=== PATIENT | female | born 1955 | race African-American/Black ===

== ENCOUNTER 2017-09-12 12:06 | Inpatient (IN) | payer OTHER ==
[2017-09-12 14:19] VITALS: BMI 32.8
--- NOTE | 2017-09-12 15:25 | HP ---
COWS - Scale Resting Pulse: 1= MO 81-100 Sweatin=Flushed/Facial Moisture Restless Observation: 3= Extraneous Movement Pupil Size: 2= Moderately Dilated Bone or Joint Aches: 2= Severe Diffuse Aches Runny Nose/ Eye Tearin= Runny Nose/Eyes GI Upset > 30mins: 2= Nausea/Diarrhea Tremor Observation: 2= Slight Tremor Visible Yawning Observation: 2= >3x During Session Anxiety or Irritability: 2=Irritable/Anxious Goose Flesh Skin: 0=Smooth Skin COWS Score: 20 Admission ROS S - HPI Chief Complaint: I AM HERE TO DETOX FROM HEROIN,OXYCODONE,STREET METHADONE Allergies/Adverse Reactions: Allergies Allergy/AdvReac Type Severity Reaction Status Date / Time No Known Allergies Allergy Verified 09/12/17 14:53 History of Present Illness: THIS 61 YEAR OLD FEMALE WITH HEROIN,OXYCODONE,STEET METHADONE Exam Limitations: No Limitations - Ebola screening Have you traveled outside of the country in the last 21 days: No Have you had contact with anyone from an Ebola affected area: No Have you been sick,other than usual withdrawal symptoms: No - Review of Systems Constitutional: Chills, Loss of Appetite, Malaise, Night Sweats, Changes in sleep, Weakness EENT: reports: Tearing, Nose Congestion Respiratory: reports: No Symptoms reported, Other (ASTHMA) GI: reports: Diarrhea, Nausea, Vomiting, Abdominal cramping : reports: No Symptoms Reported Musculoskeletal: reports: Back Pain, Joint Pain, Muscle Pain, Joint Stiffness, Other (AMBULATIONWITH WALKER 2 YEARS DUE TO PAIN IN BOTH HIPS) Integumentary: reports: Dryness Patient History - Patient Medical History Hx Asthma: Yes (Pt is on MDI) Hx Chronic Obstructive Pulmonary Disease (COPD): No Hx Cardiac Disorders: No Hx Hypertension: No Hx Seizures: No Hx Diabetes: Yes (ON METFORMIN 850 MGS PO BID) Hx Gastrointestinal Disorders: No Hx Liver Disease: No Hx Genitourinary Disorders: No Hx Sexually Transmitted Disorders: Yes (genital herpes.) Hx Renal Disease (ESRD): No Hx Depression: Yes Hx Suicide Attempt: No Hx Bipolar Disorder: No Hx Schizophrenia: No Other Medical History: NO SUICIDAL,NO HOMICIDAL,PARKINSONISM,AMBULATION WITH WALKER - Patient Surgical History Past Surgical History: Yes Hx Lung Surgery: Yes (lobectomy L lung at age 17 yr from pneumonia.) Anesthesia Reaction: No - PPD History Previous Implant?: Yes Documented Results: Negative w/o proof Implanted On Prior R Admission?: No PPD to be Administered?: No - Reproductive History Patient is a Female of Child Bearing Age (11 -55 yrs old): No Patient : No - Smoking Cessation Smoking history: Never smoked - Substance & Tx. History Hx Alcohol Use: No Hx Substance Use: Yes Substance Use Type: Heroin, Opiates Hx Substance Use Treatment: Yes (2016 [facility]) - Substances Abused oxycodone Route: Oral Frequency: Daily Amount used: 5 30 mg pills Age of first use: 54 Date of Last Use: 09/12/17 street methadone Route: Oral Frequency: 3-6 times per week Amount used: 90-100mg Age of first use: 54 Date of Last Use: 09/07/17 Heroin Route: Inhalation Frequency: Daily Amount used: 3 BAGS Age of first use: 49 Date of Last Use: 09/09/17 Family Disease History - Family Disease History Family Disease History: Other: Father (ALCOHOL,), Mother (ALCOHOL, ) Admission Physical Exam [facility] - Vital Signs Vital Signs: Vital Signs - 24 hr 09/12/17 14:15 Temperature 97.1 F L Pulse Rate 81 Respiratory 20 Rate Blood Pressure 119/82 - Physical General Appearance: Yes: Tremorous, Irritable, Sweating, Anxious HEENTM: Yes: Normal ENT Inspection, PRAVEEN, Pharynx Normal Respiratory: Yes: Within Normal Limits, Lungs Clear, Normal Breath Sounds Neck: Yes: Within Normal Limits, Supple, Trachea in good position Breast: Yes: Breast Exam Deferred Cardiology: Yes: Within Normal Limits, Regular Rhythm, S1, S2 Abdominal: Yes: Normal Bowel Sounds, Non Tender, Flat, Soft Genitourinary: Yes: Within Normal Limits Back: Yes: Normal Inspection, Muscle Spasm Musculoskeletal: Yes: full range of Motion, Gait Steady, Back pain Extremities: Yes: Tremors Neurological: Yes: staff development educator II-XII NML intact, Fully Oriented, Alert, Motor Strength 5/5 Integumentary: Yes: Dry Lymphatic: Yes: Within Normal Limits - Diagnostic (1) Opioid dependence with withdrawal Current Visit: Yes Status: Acute (2) Parkinsonism Current Visit: Yes Status: Acute (3) Walker as ambulation aid Current Visit: Yes Status: Acute (4) DM2 (diabetes mellitus, type 2) Current Visit: Yes Status: Acute Cleared for Admission [facility] - Detox or Rehab [facility] Level of Care: Medically Managed Detox Regimen/Protocol: Methadone [facility] Breath Alcohol Content Breath Alcohol Content: 0 Urine Pregancy Test - Result Urine Test Results: Negative- NO Line Present Urine Drug Screen - Results Drug Screen Negative: No Urine Drug Screen Results: MTD-Methadone, OXY-Oxycodone
[2017-09-12] MEDS ORDERED: MAG HYDROX/AL HYDROX/SIMETH 30 ML UNIT-DOSE CUP PO PRN (15:38)
[2017-09-12] MEDS ORDERED: MAGNESIUM HYDROX 2400MG/30ML ORAL SUSPENSION 30 ML CUP PO PRN (15:38)
[2017-09-12] MEDS ORDERED: MAGNESIUM CITRATE 300 ML BOTTLE PO PRN (15:38)
[2017-09-12] MEDS ORDERED: P-EPHED 60MG/TRIPROLIDI 2.5MG TABLET PO PRN (15:38)
[2017-09-12] MEDS ORDERED: ACETAMINOPHEN 325 MG TABLET (FP) PO PRN (15:38)
[2017-09-12] MEDS ORDERED: MENTHOL/PHENOL 1 EACH UD MM PRN (15:38)
[2017-09-12] MEDS ORDERED: LOPERAMIDE HCL 2 MG CAPSULE PO PRN (15:38)
[2017-09-12] MEDS ORDERED: guaiFENesin/D-METHORPHAN HB 10 ML UNIT-DOSE CUPS PO PRN (15:38)
[2017-09-12] MEDS: diazePAM 5 MG TABLET PO PRN (19:01)
[2017-09-12] MEDS ORDERED: METHADONE HCL 10 MG TABLET (FOR DETOX USE ONLY) PO ONE ×2 (19:15→23:00)
[2017-09-12] MEDS: CARBIDOPA/LEVODOPA 25/100 TABLET (FP) PO SCH (22:27)
[2017-09-12] MEDS: hydrOXYzine PAMOATE 25 MG CAPSULE (FP) PO PRN (22:27)
[2017-09-12] MEDS: THIAMINE HCL 100 MG TABLET (FP) PO SCH (22:27)
[2017-09-13] MEDS: diazePAM 5 MG TABLET PO PRN ×3 (06:08→22:05)
[2017-09-13] MEDS: CARBIDOPA/LEVODOPA 25/100 TABLET (FP) PO SCH ×3 (07:22→22:05)
[2017-09-13] MEDS ORDERED: METHADONE HCL 10 MG TABLET (FOR DETOX USE ONLY) PO ONE (10:00)
[2017-09-13 10:28] LABS: HEMATOCRIT 47.3 % (32.4-45.2); MCH 29.8 pg (25.7-33.7); MCHC 31.7 g/dl (32.0-36.0); MEAN CELL VOLUME 94.2 fl (80-96); PLATELET COUNT 210 K/MM3 (134-434); RBC 5.02 M/mm3 (3.60-5.2); WHITE BLOOD COUNT 8.2 K/mm3 (4.0-10.0)
--- NOTE | 2017-09-13 10:38 | CONSULT ---
[facility] Psychiatric Consult - Data Date of interview: 09/13/17 Admission source: [facility] Identifying data: Pt. is a 61 year old single female, mother of three, and on diability. This is patient's first admission to [facility]. Pt. admitted for opiate dependence. Substance Abuse History: Following information confirmed with Ms. Clark: - Substance & Tx. History. Hx Alcohol Use: No. Hx Substance Use: Yes. Substance Use Type: Heroin, Opiates. Hx Substance Use Treatment: Yes (2016 [facility]). - Substances Abused. oxycodone. Route: Oral. Frequency: Daily. Amount used: 5 30 mg pills. Age of first use: 54. Date of Last Use: . street methadone. Route: Oral. Frequency: 3-6 times per week. Amount used: 90-100mg. Age of first use: 54. Date of Last Use: 09/07/17. Heroin. Route: Inhalation. Frequency: Daily. Amount used: 3 BAGS. Age of first use: 49. Date of Last Use: 09/09/17 Medical History: Asthma, Diabetes Psychiatric History: Pt. denies h/o psychiatric hospitalizations. Pt. reports h/ o outpatient care approximately 5-10 years ago. Pt. unable to recall the medications she once took over five years ago. 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 No psychotic symptoms noted. Pt. denies h/o suicide attempts. Physical/Sexual Abuse/Trauma History: Denies. Mental Status Exam - Mental Status Exam Alert and Oriented to: Time, Place, Person Cognitive Function: Fair Patient Appearance: Well Groomed Mood: Euthymic Affect: Mood Congruent Patient Behavior: Cooperative Speech Pattern: Delayed Voice Loudness: Moderately Soft/Quiet Thought Process: Goal Oriented Thought Disorder: Not Present Hallucinations: Denies Suicidal Ideation: Denies Homicidal Ideation: Denies Insight/Judgement: Poor Sleep: Poorly Appetite: Fair Muscle strength/Tone: Mild Hypertonicity Gait/Station: Other (Pt. uses a walker to ambulate.) Psychiatric Findings - Problem List ([place] 1, 2,3) (1) Opioid dependence with withdrawal Current Visit: Yes Status: Acute (2) Insomnia Current Visit: Yes Status: Acute Qualifiers: Insomnia type: primary Qualified Code(s): F51.01 - Primary insomnia - Initial Treatment Plan Initial Treatment Plan: Psychoeducation provided. Detoxification in progress. Ambien 5mg qhs prn ordered. Pt. reports taking ambien at home. Benefits and side effects (sleep walking) discussed. Verbal consent given. Will continue to monitor.
[2017-09-13] MEDS: valACYclovir HCL 500 MG TABLET (FP) PO SCH (10:46)
[2017-09-13] MEDS: PRENATAL VITAMINS W/ FOLIC ACID TABLET (FP) PO SCH (10:46)
[2017-09-13 10:52] LABS: CHLORIDE 101 mmol/L (98-107); SODIUM 137 mmol/L (136-145)
[2017-09-13 11:20] LABS: ALBUMIN 4.1 g/dl (3.4-5.0); ALK PHOS 68 U/L (45-117); ANION GAP 9 (8-16); BILIRUBIN,TOTAL 0.4 mg/dL (0.2-1.0); BLOOD UREA NITROGEN 19 mg/dL (7-18); CALCIUM 8.7 mg/dL (8.5-10.1); CO2 27 mmol/L (21-32); CREATININE 0.9 mg/dL (0.55-1.02); GLUCOSE,RANDOM 76 mg/dL (74-106); SGOT/AST 9 U/L (15-37); SGPT/ALT 16 U/L (12-78); TOT PROT 8.3 g/dl (6.4-8.2)
--- NOTE | 2017-09-13 11:42 | PN ---
[facility] COWS - Scale Resting Pulse: 1= MD 81-100 Sweatin=Flushed/Facial Moisture Restless Observation: 1= Difficult to Sit Still Pupil Size: 0= Normal to Room Light Bone or Joint Aches: 2= Severe Diffuse Aches Runny Nose/ Eye Tearin= Nasal Congestion GI Upset > 30mins: 1= Stomach Cramp Tremor Observation of Outstretched Hands: 1= Tremor [place], Not Seen Yawning Observation: 1= 1-2x During Session Anxiety or Irritability: 2=Irritable/Anxious Goose Flesh Skin: 3=Piloerection COWS Score: 15 [facility] Progress Note (SOAP) Subjective: agitation sweats shakes interrupted sleep chills body aches Objective: 09/13/17 11:50 Vital Signs Temperature 97.2 F L 09/13/17 06:15 Pulse Rate 66 09/13/17 06:15 Respiratory Rate 16 09/13/17 06:15 Blood Pressure 136/74 09/13/17 06:15 O2 Sat by Pulse Oximetry (%) Laboratory Tests 09/12/17 09/13/17 09/13/17 15:28 05:50 06:07 WBC 8.2 RBC 5.02 Hgb 15.0 Hct 47.3 H MCV 94.2 MCH 29.8 MCHC 31.7 L RDW 15.0 Plt Count 210 MPV 10.0 POC Glucometer 88 90 labs pending [id number] ambulating no acute distress Assessment: 09/13/17 11:50 withdrawal sx Plan: continue detox increase fluids
--- NOTE | 2017-09-13 14:21 | EKG ---
Test Reason : Blood Pressure : / mmHG Vent. Rate : 066 BPM Atrial Rate : 066 BPM P-R Int : 176 ms QRS Dur : 066 ms QT Int : 386 ms P-R-T Axes : 028 074 057 degrees QTc Int : 404 ms NORMAL SINUS RHYTHM NO PREVIOUS ECGS AVAILABLE Confirmed by DESI KUTRZ MD ([id number]) on 09/13/2017 2:20:38 PM Referred By: Confirmed By:DESI KURTZ MD
[2017-09-13 21:44] LABS: URINE APPEARANCE TURBID; URINE BILIRUBIN NEGATIVE (NEGATIVE); URINE BLOOD NEGATIVE (NEGATIVE); URINE COLOR AMBER; URINE GLUCOSE (UA) NEGATIVE (NEGATIVE); URINE KETONE TRACE (NEGATIVE); URINE LEUK ESTERASE TRACE (NEGATIVE); URINE NITRITE NEGATIVE (NEGATIVE); URINE PROTEIN NEGATIVE (NEGATIVE); URINE UROBILINOGEN NEGATIVE mg/dL (0.2-1.0)
[2017-09-13 21:49] LABS: EPI CELLS RARE /HPF (FEW); URINE MUCUS MODERATE
[2017-09-13] MEDS: THIAMINE HCL 100 MG TABLET (FP) PO SCH (22:05)
[2017-09-13] MEDS: ZOLPIDEM TARTRATE 5 MG TABLET PO PRN (22:05)
[2017-09-14] MEDS: IBUPROFEN 400 MG TABLET (FP) PO PRN (06:33)
[2017-09-14] MEDS: CARBIDOPA/LEVODOPA 25/100 TABLET (FP) PO SCH ×3 (06:34→22:34)
[2017-09-14] MEDS ORDERED: METHADONE HCL 5 MG TABLET (FOR DETOX USE ONLY) PO ONE (10:00)
[2017-09-14] MEDS: PRENATAL VITAMINS W/ FOLIC ACID TABLET (FP) PO SCH (10:44)
[2017-09-14] MEDS: valACYclovir HCL 500 MG TABLET (FP) PO SCH (10:44)
[2017-09-14] MEDS: diazePAM 5 MG TABLET PO PRN ×2 (10:44→22:35)
--- NOTE | 2017-09-14 16:24 | PN ---
S COWS - Scale Resting Pulse: 0= MD 80 or Below Sweatin=Flushed/Facial Moisture Restless Observation: 3= Extraneous Movement Pupil Size: 0= Normal to Room Light Bone or Joint Aches: 2= Severe Diffuse Aches Runny Nose/ Eye Tearin= Nasal Congestion GI Upset > 30mins: 1= Stomach Cramp Tremor Observation of Outstretched Hands: 4= Gross Tremor/Twitching Yawning Observation: 0= None Anxiety or Irritability: 2=Irritable/Anxious Goose Flesh Skin: 0=Smooth Skin COWS Score: 15 [facility] Progress Note (SOAP) Subjective: nasal congestion shakes Objective: 09/14/17 16:23 A & O x 3 tremors s/p parkinson ambulates with cane Vital Signs Temperature 97.9 F 09/14/17 14:57 Pulse Rate 81 09/14/17 14:57 Respiratory Rate 20 09/14/17 14:57 Blood Pressure 98/63 09/14/17 14:57 O2 Sat by Pulse Oximetry (%) Laboratory Last Values WBC 8.2 K/mm3 (4.0-10.0) 09/13/17 05:50 RBC 5.02 M/mm3 (3.60-5.2) 09/13/17 05:50 Hgb 15.0 GM/dL (10.7-15.3) 09/13/17 05:50 Hct 47.3 % (32.4-45.2) H 09/13/17 05:50 MCV 94.2 fl (80-96) 09/13/17 05:50 MCH 29.8 pg (25.7-33.7) 09/13/17 05:50 MCHC 31.7 g/dl (32.0-36.0) L 09/13/17 05:50 RDW 15.0 % (11.6-15.6) 09/13/17 05:50 Plt Count 210 K/MM3 (134-434) 09/13/17 05:50 MPV 10.0 fl (7.5-11.1) 09/13/17 05:50 Sodium 137 mmol/L (136-145) 09/13/17 05:50 Potassium 4.0 mmol/L (3.5-5.1) 09/13/17 05:50 Chloride 101 mmol/L (98-107) 09/13/17 05:50 Carbon Dioxide 27 mmol/L (21-32) 09/13/17 05:50 Anion Gap 9 (8-16) 09/13/17 05:50 BUN 19 mg/dL (7-18) H 09/13/17 05:50 Creatinine 0.9 mg/dL (0.55-1.02) 09/13/17 05:50 Creat Clearance w eGFR > 60 (>60) 09/13/17 05:50 POC Glucometer 83 UNITS (80-120) 09/14/17 06:26 Random Glucose 76 mg/dL (74-106) 09/13/17 05:50 Calcium 8.7 mg/dL (8.5-10.1) 09/13/17 05:50 Total Bilirubin 0.4 mg/dL (0.2-1.0) 09/13/17 05:50 AST 9 U/L (15-37) L 09/13/17 05:50 ALT 16 U/L (12-78) 09/13/17 05:50 Alkaline Phosphatase 68 U/L (45-117) 09/13/17 05:50 Total Protein 8.3 g/dl (6.4-8.2) H 09/13/17 05:50 Albumin 4.1 g/dl (3.4-5.0) 09/13/17 05:50 Urine Color Gini 09/13/17 19:45 Urine Appearance Turbid 09/13/17 19:45 Urine pH 5.0 (5.0-8.0) 09/13/17 19:45 Ur Specific [place] 1.028 (1.001-1.035) 09/13/17 19:45 Urine Protein Negative (NEGATIVE) 09/13/17 19:45 Urine Glucose (UA) Negative (NEGATIVE) 09/13/17 19:45 Urine Ketones Trace (NEGATIVE) H 09/13/17 19:45 Urine Blood Negative (NEGATIVE) 09/13/17 19:45 Urine Nitrite Negative (NEGATIVE) 09/13/17 19:45 Urine Bilirubin Negative (NEGATIVE) 09/13/17 19:45 Urine Urobilinogen Negative mg/dL (0.2-1.0) 09/13/17 19:45 Ur Leukocyte Esterase Trace (NEGATIVE) 09/13/17 19:45 Urine WBC (Auto) 3 /hpf (3-5) 09/13/17 19:45 Urine RBC (Auto) 2 /hpf (0-3) 09/13/17 19:45 Ur Epithelial Cells Rare /HPF (FEW) 09/13/17 19:45 Urine Mucus Moderate 09/13/17 19:45 RPR Titer Nonreactive (NONREACTIVE) 09/13/17 05:50 HIV 1&2 Antibody Screen Negative 09/12/17 15:40 HIV P24 Antigen Negative 09/12/17 15:40 noted Assessment: 09/14/17 16:24 withdrawal sx parkinsons dx Plan: continue detox
[2017-09-14] MEDS: ZOLPIDEM TARTRATE 5 MG TABLET PO PRN (22:33)
[2017-09-14] MEDS: THIAMINE HCL 100 MG TABLET (FP) PO SCH (22:34)
[2017-09-15] MEDS: CARBIDOPA/LEVODOPA 25/100 TABLET (FP) PO SCH ×3 (06:08→22:36)
[2017-09-15] MEDS ORDERED: METHADONE HCL 5 MG TABLET (FOR DETOX USE ONLY) PO ONE (10:00)
[2017-09-15] MEDS: valACYclovir HCL 500 MG TABLET (FP) PO SCH (10:34)
[2017-09-15] MEDS: PRENATAL VITAMINS W/ FOLIC ACID TABLET (FP) PO SCH (10:34)
[2017-09-15] MEDS: diazePAM 5 MG TABLET PO PRN ×2 (10:35→18:07)
--- NOTE | 2017-09-15 12:43 | PN ---
[facility] Progress Note (SOAP) Subjective: joint ache sweat muscle aches anxiety irritable Objective: 09/15/17 12:42 Vital Signs Temperature 96.8 F L 09/15/17 10:17 Pulse Rate 86 09/15/17 10:17 Respiratory Rate 18 09/15/17 10:17 Blood Pressure 136/76 09/15/17 10:17 O2 Sat by Pulse Oximetry (%) Laboratory Last Values WBC 8.2 K/mm3 (4.0-10.0) 09/13/17 05:50 RBC 5.02 M/mm3 (3.60-5.2) 09/13/17 05:50 Hgb 15.0 GM/dL (10.7-15.3) 09/13/17 05:50 Hct 47.3 % (32.4-45.2) H 09/13/17 05:50 MCV 94.2 fl (80-96) 09/13/17 05:50 MCH 29.8 pg (25.7-33.7) 09/13/17 05:50 MCHC 31.7 g/dl (32.0-36.0) L 09/13/17 05:50 RDW 15.0 % (11.6-15.6) 09/13/17 05:50 Plt Count 210 K/MM3 (134-434) 09/13/17 05:50 MPV 10.0 fl (7.5-11.1) 09/13/17 05:50 Sodium 137 mmol/L (136-145) 09/13/17 05:50 Potassium 4.0 mmol/L (3.5-5.1) 09/13/17 05:50 Chloride 101 mmol/L (98-107) 09/13/17 05:50 Carbon Dioxide 27 mmol/L (21-32) 09/13/17 05:50 Anion Gap 9 (8-16) 09/13/17 05:50 BUN 19 mg/dL (7-18) H 09/13/17 05:50 Creatinine 0.9 mg/dL (0.55-1.02) 09/13/17 05:50 Creat Clearance w eGFR > 60 (>60) 09/13/17 05:50 POC Glucometer 94 UNITS (80-120) 09/15/17 06:08 Random Glucose 76 mg/dL (74-106) 09/13/17 05:50 Calcium 8.7 mg/dL (8.5-10.1) 09/13/17 05:50 Total Bilirubin 0.4 mg/dL (0.2-1.0) 09/13/17 05:50 AST 9 U/L (15-37) L 09/13/17 05:50 ALT 16 U/L (12-78) 09/13/17 05:50 Alkaline Phosphatase 68 U/L (45-117) 09/13/17 05:50 Total Protein 8.3 g/dl (6.4-8.2) H 09/13/17 05:50 Albumin 4.1 g/dl (3.4-5.0) 09/13/17 05:50 Urine Color Gini 09/13/17 19:45 Urine Appearance Turbid 09/13/17 19:45 Urine pH 5.0 (5.0-8.0) 09/13/17 19:45 Ur Specific [place] 1.028 (1.001-1.035) 09/13/17 19:45 Urine Protein Negative (NEGATIVE) 09/13/17 19:45 Urine Glucose (UA) Negative (NEGATIVE) 09/13/17 19:45 Urine Ketones Trace (NEGATIVE) H 09/13/17 19:45 Urine Blood Negative (NEGATIVE) 09/13/17 19:45 Urine Nitrite Negative (NEGATIVE) 09/13/17 19:45 Urine Bilirubin Negative (NEGATIVE) 09/13/17 19:45 Urine Urobilinogen Negative mg/dL (0.2-1.0) 09/13/17 19:45 Ur Leukocyte Esterase Trace (NEGATIVE) 09/13/17 19:45 Urine WBC (Auto) 3 /hpf (3-5) 09/13/17 19:45 Urine RBC (Auto) 2 /hpf (0-3) 09/13/17 19:45 Ur Epithelial Cells Rare /HPF (FEW) 09/13/17 19:45 Urine Mucus Moderate 09/13/17 19:45 RPR Titer Nonreactive (NONREACTIVE) 09/13/17 05:50 HIV 1&2 Antibody Screen Negative 09/12/17 15:40 HIV P24 Antigen Negative 09/12/17 15:40 lab noted Assessment: 09/15/17 12:42 withdrawal sx Plan: continue detox
[2017-09-15] MEDS: METHOCARBAMOL 500 MG TABLET PO SCH ×2 (13:28→22:35)
[2017-09-15] MEDS: ZOLPIDEM TARTRATE 5 MG TABLET PO PRN (22:35)
[2017-09-15] MEDS: THIAMINE HCL 100 MG TABLET (FP) PO SCH (22:36)
[2017-09-15] MEDS: hydrOXYzine PAMOATE 25 MG CAPSULE (FP) PO PRN (22:36)
[2017-09-15] MEDS: IBUPROFEN 400 MG TABLET (FP) PO PRN (22:36)
[2017-09-16] MEDS: CARBIDOPA/LEVODOPA 25/100 TABLET (FP) PO SCH ×3 (06:08→22:11)
[2017-09-16] MEDS: METHOCARBAMOL 500 MG TABLET PO SCH ×3 (06:08→22:11)
--- NOTE | 2017-09-16 09:54 | PN ---
[facility] Progress Note (SOAP) Subjective: feeling better less sweat no tremor tolerates food and fluid well Objective: 09/16/17 09:55 Vital Signs Temperature 96.4 F L 09/16/17 06:35 Pulse Rate 73 09/16/17 06:35 Respiratory Rate 20 09/16/17 06:35 Blood Pressure 114/65 09/16/17 06:35 O2 Sat by Pulse Oximetry (%) Laboratory Last Values WBC 8.2 K/mm3 (4.0-10.0) 09/13/17 05:50 RBC 5.02 M/mm3 (3.60-5.2) 09/13/17 05:50 Hgb 15.0 GM/dL (10.7-15.3) 09/13/17 05:50 Hct 47.3 % (32.4-45.2) H 09/13/17 05:50 MCV 94.2 fl (80-96) 09/13/17 05:50 MCH 29.8 pg (25.7-33.7) 09/13/17 05:50 MCHC 31.7 g/dl (32.0-36.0) L 09/13/17 05:50 RDW 15.0 % (11.6-15.6) 09/13/17 05:50 Plt Count 210 K/MM3 (134-434) 09/13/17 05:50 MPV 10.0 fl (7.5-11.1) 09/13/17 05:50 Sodium 137 mmol/L (136-145) 09/13/17 05:50 Potassium 4.0 mmol/L (3.5-5.1) 09/13/17 05:50 Chloride 101 mmol/L (98-107) 09/13/17 05:50 Carbon Dioxide 27 mmol/L (21-32) 09/13/17 05:50 Anion Gap 9 (8-16) 09/13/17 05:50 BUN 19 mg/dL (7-18) H 09/13/17 05:50 Creatinine 0.9 mg/dL (0.55-1.02) 09/13/17 05:50 Creat Clearance w eGFR > 60 (>60) 09/13/17 05:50 POC Glucometer 93 UNITS (80-120) 09/16/17 06:04 Random Glucose 76 mg/dL (74-106) 09/13/17 05:50 Calcium 8.7 mg/dL (8.5-10.1) 09/13/17 05:50 Total Bilirubin 0.4 mg/dL (0.2-1.0) 09/13/17 05:50 AST 9 U/L (15-37) L 09/13/17 05:50 ALT 16 U/L (12-78) 09/13/17 05:50 Alkaline Phosphatase 68 U/L (45-117) 09/13/17 05:50 Total Protein 8.3 g/dl (6.4-8.2) H 09/13/17 05:50 Albumin 4.1 g/dl (3.4-5.0) 09/13/17 05:50 Urine Color Gini 09/13/17 19:45 Urine Appearance Turbid 09/13/17 19:45 Urine pH 5.0 (5.0-8.0) 09/13/17 19:45 Ur Specific [place] 1.028 (1.001-1.035) 09/13/17 19:45 Urine Protein Negative (NEGATIVE) 09/13/17 19:45 Urine Glucose (UA) Negative (NEGATIVE) 09/13/17 19:45 Urine Ketones Trace (NEGATIVE) H 09/13/17 19:45 Urine Blood Negative (NEGATIVE) 09/13/17 19:45 Urine Nitrite Negative (NEGATIVE) 09/13/17 19:45 Urine Bilirubin Negative (NEGATIVE) 09/13/17 19:45 Urine Urobilinogen Negative mg/dL (0.2-1.0) 09/13/17 19:45 Ur Leukocyte Esterase Trace (NEGATIVE) 09/13/17 19:45 Urine WBC (Auto) 3 /hpf (3-5) 09/13/17 19:45 Urine RBC (Auto) 2 /hpf (0-3) 09/13/17 19:45 Ur Epithelial Cells Rare /HPF (FEW) 09/13/17 19:45 Urine Mucus Moderate 09/13/17 19:45 RPR Titer Nonreactive (NONREACTIVE) 09/13/17 05:50 HIV 1&2 Antibody Screen Negative 09/12/17 15:40 HIV P24 Antigen Negative 09/12/17 15:40 lab noted Assessment: 09/16/17 09:55 mild withdrawal sx Plan: medically supervised detox
[2017-09-16] MEDS ORDERED: METHADONE HCL 10 MG TABLET (FOR DETOX USE ONLY) PO ONE (10:00)
[2017-09-16] MEDS: PRENATAL VITAMINS W/ FOLIC ACID TABLET (FP) PO SCH (10:41)
[2017-09-16] MEDS: valACYclovir HCL 500 MG TABLET (FP) PO SCH (10:41)
[2017-09-16] MEDS: ZOLPIDEM TARTRATE 5 MG TABLET PO PRN (22:11)
[2017-09-16] MEDS: THIAMINE HCL 100 MG TABLET (FP) PO SCH (22:11)
[2017-09-17] MEDS ORDERED: METHADONE HCL 5 MG TABLET (FOR DETOX USE ONLY) PO ONE (06:00)
[2017-09-17] MEDS: METHOCARBAMOL 500 MG TABLET PO SCH (06:01)
[2017-09-17] MEDS: CARBIDOPA/LEVODOPA 25/100 TABLET (FP) PO SCH (06:01)
--- NOTE | 2017-09-17 08:46 | DS ---
[facility] Detox Discharge Summary Admission Date: 09/12/17 Discharge Date: 09/17/17 - History Present History: Opioid Dependence - Physical Exam Results Vital Signs: Vital Signs Temperature 96.4 F L 09/17/17 06:30 Pulse Rate 74 09/17/17 06:30 Respiratory Rate 18 09/17/17 06:30 Blood Pressure 134/78 09/17/17 06:30 O2 Sat by Pulse Oximetry (%) Pertinent Admission Physical Exam Findings: withdrawal sx Vital Signs Temperature 96.4 F L 09/17/17 06:30 Pulse Rate 74 09/17/17 06:30 Respiratory Rate 18 09/17/17 06:30 Blood Pressure 134/78 09/17/17 06:30 O2 Sat by Pulse Oximetry (%) Laboratory Last Values WBC 8.2 K/mm3 (4.0-10.0) 09/13/17 05:50 RBC 5.02 M/mm3 (3.60-5.2) 09/13/17 05:50 Hgb 15.0 GM/dL (10.7-15.3) 09/13/17 05:50 Hct 47.3 % (32.4-45.2) H 09/13/17 05:50 MCV 94.2 fl (80-96) 09/13/17 05:50 MCH 29.8 pg (25.7-33.7) 09/13/17 05:50 MCHC 31.7 g/dl (32.0-36.0) L 09/13/17 05:50 RDW 15.0 % (11.6-15.6) 09/13/17 05:50 Plt Count 210 K/MM3 (134-434) 09/13/17 05:50 MPV 10.0 fl (7.5-11.1) 09/13/17 05:50 Sodium 137 mmol/L (136-145) 09/13/17 05:50 Potassium 4.0 mmol/L (3.5-5.1) 09/13/17 05:50 Chloride 101 mmol/L (98-107) 09/13/17 05:50 Carbon Dioxide 27 mmol/L (21-32) 09/13/17 05:50 Anion Gap 9 (8-16) 09/13/17 05:50 BUN 19 mg/dL (7-18) H 09/13/17 05:50 Creatinine 0.9 mg/dL (0.55-1.02) 09/13/17 05:50 Creat Clearance w eGFR > 60 (>60) 09/13/17 05:50 POC Glucometer 70 UNITS (80-120) 09/17/17 06:03 Random Glucose 76 mg/dL (74-106) 09/13/17 05:50 Calcium 8.7 mg/dL (8.5-10.1) 09/13/17 05:50 Total Bilirubin 0.4 mg/dL (0.2-1.0) 09/13/17 05:50 AST 9 U/L (15-37) L 09/13/17 05:50 ALT 16 U/L (12-78) 09/13/17 05:50 Alkaline Phosphatase 68 U/L (45-117) 09/13/17 05:50 Total Protein 8.3 g/dl (6.4-8.2) H 09/13/17 05:50 Albumin 4.1 g/dl (3.4-5.0) 09/13/17 05:50 Urine Color Gini 09/13/17 19:45 Urine Appearance Turbid 09/13/17 19:45 Urine pH 5.0 (5.0-8.0) 09/13/17 19:45 Ur Specific [place] 1.028 (1.001-1.035) 09/13/17 19:45 Urine Protein Negative (NEGATIVE) 09/13/17 19:45 Urine Glucose (UA) Negative (NEGATIVE) 09/13/17 19:45 Urine Ketones Trace (NEGATIVE) H 09/13/17 19:45 Urine Blood Negative (NEGATIVE) 09/13/17 19:45 Urine Nitrite Negative (NEGATIVE) 09/13/17 19:45 Urine Bilirubin Negative (NEGATIVE) 09/13/17 19:45 Urine Urobilinogen Negative mg/dL (0.2-1.0) 09/13/17 19:45 Ur Leukocyte Esterase Trace (NEGATIVE) 09/13/17 19:45 Urine WBC (Auto) 3 /hpf (3-5) 09/13/17 19:45 Urine RBC (Auto) 2 /hpf (0-3) 09/13/17 19:45 Ur Epithelial Cells Rare /HPF (FEW) 09/13/17 19:45 Urine Mucus Moderate 09/13/17 19:45 RPR Titer Nonreactive (NONREACTIVE) 09/13/17 05:50 HIV 1&2 Antibody Screen Negative 09/12/17 15:40 HIV P24 Antigen Negative 09/12/17 15:40 lab noted - Treatment Hospital Course: Detox Protocol Followed, Detoxed Safely, Responded well, Discharged Condition Good, Rehab Referral Accepted Patient has Accepted a Rehab Referral to: [facility] - Medication Discharge Medications: Ambulatory Orders Valacyclovir HCl [Valtrex -] 500 mg PO DAILY 09/12/17 Carbidopa/Levodopa 25/100 [Sinemet 25/100 -] 1 each PO TID #42 tablet 09/17/17 metFORMIN HCL [Glucophage -] 850 mg PO BID #28 tablet 09/17/17 - Diagnosis (1) Opioid dependence with withdrawal Current Visit: Yes Status: Acute (2) Parkinsonism Current Visit: Yes Status: Chronic Qualifiers: Secondary Parkinsonism type: other secondary (3) Walker as ambulation aid Current Visit: Yes Status: Chronic - AMA Did Patient Leave Against Medical Advice: No
--- NOTE | 2017-09-17 09:34 | PN ---
Psychiatric Progress Note Vital Signs: Vital Signs Period Temp Pulse Resp BP Sys/Maxwell Pulse Ox Last 24 Hr 96.4 F-97.5 F 74-93 18-18 122-142/75-85 Date of Session: 09/17/17 Chief Complaint:: "I need something for sleep." HPI: Pt. is a 61 year old woman admitted to for opiate dependence. ROS: Parkinsonism Current Medications: Active Medications Generic Name Dose Route Start Last Admin Trade Name Freq PRN Reason Stop Dose Admin Acetaminophen 650 mg 09/12/17 15:38 Tylenol - PO Q4H PRN FEVER Al Hydroxide/Mg Hydroxide 30 ml 09/12/17 15:38 09/13/17 22:06 Mylanta Oral Suspension - PO 30 ml Q6H PRN Administration DYSPEPSIA Carbidopa/Levodopa 1 each 09/12/17 22:00 09/17/17 06:01 Sinemet 25/100 - PO 1 each TID JAKE Administration Eucalyptus/Menthol/Phenol/Sorbitol 1 each 09/12/17 15:38 Cepastat Lozenge - MM Q4H PRN SORE THROAT Guaifenesin 10 ml 09/12/17 15:38 Robitussin Dm - PO Q6H PRN COUGH Hydroxyzine Pamoate 25 mg 09/12/17 15:38 09/15/17 22:36 Vistaril - PO 25 mg Q4H PRN Administration AGITATION Ibuprofen 400 mg 09/12/17 15:38 09/15/17 22:36 Motrin - PO 400 mg Q6H PRN Administration PAIN LEVEL 4-6 Loperamide HCl 4 mg 09/12/17 15:38 Imodium - PO Q6H PRN DIARRHEA Magnesium Citrate 300 ml 09/12/17 15:38 Citroma - PO Q48H PRN CONSTIPATION Magnesium Hydroxide 30 ml 09/12/17 15:38 Milk Of Magnesia - PO DAILY PRN CONSTIPATION Metformin HCl 850 mg 09/12/17 17:00 09/16/17 17:15 Glucophage - PO 850 mg BIDAC JAKE Administration Methocarbamol 500 mg 09/15/17 14:00 09/17/17 06:01 Robaxin - PO 500 mg TID JAKE Administration Multivit/Folic Acid/Iron 1 tab 09/13/17 10:00 09/16/17 10:41 Vitamins ([facility]) - PO 1 tab DAILY JAKE Administration Pseudoephedrine/Triprolidine 1 combo 09/12/17 15:38 Actifed - PO TID PRN NASAL CONGESTION Thiamine HCl 100 mg 09/12/17 22:00 09/16/17 22:11 Vitamin B1 - PO 100 mg HS JAKE Administration Valacyclovir HCl 500 mg 09/13/17 10:00 09/16/17 10:41 Valtrex - PO 500 mg DAILY JAKE Administration Medication(s) Change(s): No. Current Side Effect: No Lab tests ordered: No Lab tests reviewed: Yes Provider note:: Stamp Pad Maker approached patient for a psychiatric reconsultation. Pt. requesting a sleep aid. Pt. made aware that she will be discharged today. Sleep hygiene provided and psychopharamcotherapy provided on potential sleep aids that can be ordered while in rehab. Pt. satisified and receptive to feedback. Will continue to monitor. Total face to face time:: 15 Mental Status Exam - Mental Status Exam Alert and Oriented to: Time, Place, Person Cognitive Function: Good Patient Appearance: Well Groomed Mood: Euthymic Affect: Mood Congruent Patient Behavior: Cooperative Speech Pattern: Appropriate Voice Loudness: Normal Thought Process: Goal Oriented Thought Disorder: Not Present Hallucinations: Denies Suicidal Ideation: Denies Homicidal Ideation: Denies Insight/Judgement: Poor Sleep: Poorly Appetite: Poor Muscle strength/Tone: Mild Hypertonicity Gait/Station: Other (Pt. uses a walker to ambulate.) Psychiatric Treatment Plan - Problem List (1) Opioid dependence with withdrawal Current Visit: Yes (2) Insomnia Current Visit: Yes Qualifiers: Insomnia type: primary Qualified Code(s): F51.01 - Primary insomnia
[2017-09-17 10:43] VITALS: BP 120/74; PULSE 101; TEMP 97.2
[2017-09-17] MEDS: valACYclovir HCL 500 MG TABLET (FP) PO SCH (11:15)
[2017-09-17] MEDS: PRENATAL VITAMINS W/ FOLIC ACID TABLET (FP) PO SCH (11:15)
== END 2017-09-17 13:23 | disposition other institution (70) | DRG 773 ==
LOC: YASAS 12:06 → Y6N 15:25
PROVIDERS: ADMIT Internal Medicine; ATTEND Internal Medicine
PROC: HZ2ZZZZ Detoxification Services for Substance Abuse Treatment (ICD-10-PCS; principal; 2017-09-12)
DX: F11.23 Opioid dependence with withdrawal (principal); F51.01 Primary insomnia; G20 Parkinson's disease; E11.9 Type 2 diabetes mellitus without complications; R26.2 Difficulty in walking, not elsewhere classified; Z99.89 Dependence on other enabling machines and devices; Z79.84 Long term (current) use of oral hypoglycemic drugs; Z87.42 Personal history of other diseases of the female genital tract
CPT/HCPCS: 36415; 71045-TC-FY; 80053; 81003; 81015; 82962; 85027; 86593; 87389; 93005; 93010